=== PATIENT | female | born 1935 | race African-American/Black ===

== ENCOUNTER 2017-05-10 21:49 | Emergency (ER) | payer MEDICARE, OTHER ==
[~2017-05-10] VITALS: Ht 157.5 cm; Wt 59.1 kg
[~2017-05-10 21:49] MED LIST: ALEN1TAB PO; ASPI-825 PO; CARV3 PO; CLOP75 PO; DULO60CA44 PO; EZET1TAB3 PO; FERR1TAB24 PO; FOSI20TA3 PO; FURO20 PO; GABA600T PO; ISOS60TA PO
[2017-05-10 21:57] LABS: GLUCOSE,POINT OF CARE 86 MG/DL (70-110)
[2017-05-10] MEDS ORDERED: HydrALAZINE HCL 20 MG/ML VIAL IVP ONE (22:45)
[2017-05-10] MEDS ORDERED: MORPHINE SULFATE 2 MG/ML SYRINGE IVP ONE (22:45)
[2017-05-10] MEDS ORDERED: ONDANSETRON HCL 4 MG/2 ML VIAL IVP ONE (22:45)
[2017-05-10 22:48] LABS: ANION GAP 8 mmol/L (8-16); CALCIUM, TOTAL 9.6 mg/dL (8.8-10.5); CARBON DIOXIDE 29 mmol/L (22-29); CHLORIDE 109 mmol/L (98-107); CREATININE 1.42 mg/dL (0.60-1.30); GLOMERULAR FILTR. RATE CALC 43 mL/min (>60); GLUCOSE,RANDOM 94 mg/dL (70-110); POTASSIUM 4.7 mmol/L (3.5-5.1); SODIUM SERUM 146 mmol/L (136-145); UREA NITROGEN, BLOOD 33 mg/dL (7-18)
[2017-05-10 22:51] LABS: BASOPHILS % (AUTO) 0.3 % (0.0-2.0); EOSINOPHILS % (AUTO) 3.6 % (1.0-6.0); HEMATOCRIT 32.6 % (36-46); HEMOGLOBIN 10.1 g/dL (12.0-16.0); LYMPHOCYTES # (AUTO) 1.7 K/uL (1.0-4.8); LYMPHOCYTES % (AUTO) 25.4 % (22.0-44.0); MEAN CORPUSCULAR HEMOGLOBIN 25.3 pg (26.0-34.0); MEAN CORPUSCULAR VOLUME 82 fL (80-100); MONOCYTES # (AUTO) 0.4 K/uL (0.1-1.0); MONOCYTES % (AUTO) 6.4 % (2.0-9.0); NEUTROPHILS # (AUTO) 4.3 K/uL (1.8-7.7); NEUTROPHILS % (AUTO) 64.3 % (40.0-70.0); PLATELET COUNT (AUTO) 204 K/uL (150-450); PROTHROMBIN TIME 10.7 SEC (9.4-11.6); RED CELL DISTRIBUTION WIDTH 12.7 % (11.5-14.5)
[2017-05-10 22:54] LABS: ALANINE AMINOTRANSFERASE 16 U/L (12-78); ALBUMIN 3.5 g/dL (3.4-5.0); ALKALINE PHOSPHATASE 43 U/L (46-116); ASPARTATE AMINOTRANSFERASE 11 U/L (15-37); BILIRUBIN,TOTAL 0.6 mg/dL (0.1-1.0); CREATINE KINASE, TOTAL 39 U/L (26-192); TOTAL PROTEIN, SERUM 7.1 g/dL (6.4-8.2)
[2017-05-10] MEDS ORDERED: HYDROmorphone 2 MG/ML SYRINGE IVP ONE (23:00)
[2017-05-10 23:08] LABS: B-TYPE NATRIURETIC PEPTIDE 18 pg/mL (0-100)
[2017-05-11] MEDS ORDERED: SODIUM CHLORIDE 0.9% 500 ML IV ONE (02:00)
[2017-05-11 02:01] LABS: APPEARANCE,URINE CLEAR (CLEAR); BILIRUBIN,URINE NEGATIVE (NEGATIVE); GLUCOSE, URINE (UA) NEGATIVE (NEGATIVE); KETONES,URINE NEGATIVE (NEGATIVE); LEUKOCYTE ESTERASE ,URINE TRACE (NEGATIVE); NITRATE,URINE NEGATIVE (NEGATIVE); OCCULT BLOOD,URINE NEGATIVE (NEGATIVE); PROTEIN,URINE NEGATIVE (NEGATIVE); UROBILINOGEN,URINE 0.2 mg/dL (<=1.0)
[2017-05-11 02:27] LABS: BACTERIA,URINE Rare /HPF (None Seen); RBC,URINE 0-2 /HPF (0-2); SQUAMOUS EPITHELIAL CELL,UR Rare /LPF (None Seen)
[2017-05-11 03:50] VITALS: BP 150/77
== END 2017-05-11 03:57 | disposition home or self-care (01) ==
LOC: EMS 21:49
DX: I10 Essential (primary) hypertension (principal); N39.0 Urinary tract infection, site not specified; D64.9 Anemia, unspecified; M19.90 Unspecified osteoarthritis, unspecified site; E11.9 Type 2 diabetes mellitus without complications; Z88.5 Allergy status to narcotic agent; Z79.82 Long term (current) use of aspirin; Z79.899 Other long term (current) drug therapy; Z98.890 Other specified postprocedural states
CPT/HCPCS: 36415; 70450; 71045; 80053; 81001; 82550; 82962; 83880; 84484; 85025; 85610; 85730; 93005; 96361; 96374; 96375; 99285; J0360; J1170; J2405; J7040; J2270

== ENCOUNTER 2018-04-18 12:39 | Emergency (ER) | payer MEDICARE, OTHER ==
[~2018-04-18] VITALS: Ht 149.9 cm; Wt 56.8 kg
[~2018-04-18 12:39] MED LIST changes: +AMLO5TAB4 PO; -CARV3 PO; +CARV6.2534 PO; +EZET10 PO; -FOSI20TA3 PO; +FOSI20TA97 PO
[2018-04-18 13:03] LABS: GLUCOSE,POINT OF CARE 101 MG/DL (70-110)
[2018-04-18] MEDS ORDERED: KDUR10 PO (13:25)
[2018-04-18] MEDS ORDERED: ALPR0.255 PO (13:25)
[2018-04-18] MEDS ORDERED: HYDR25TA PO (13:25)
[2018-04-18 17:53] VITALS: BP 138/82
== END 2018-04-18 18:37 | disposition home or self-care (01) ==
LOC: EMS 12:40
DX: S83.91XA Sprain of unspecified site of right knee, initial encounter (principal); S40.012A Contusion of left shoulder, initial encounter; S00.93XA Contusion of unspecified part of head, initial encounter; E11.9 Type 2 diabetes mellitus without complications; I10 Essential (primary) hypertension; Z88.5 Allergy status to narcotic agent; Z79.82 Long term (current) use of aspirin; Z79.899 Other long term (current) drug therapy; W19.XXXA Unspecified fall, initial encounter; Y93.89 Activity, other specified; Y92.89 Other specified places as the place of occurrence of the external cause; Y99.8 Other external cause status
CPT/HCPCS: 29505; 70450

== ENCOUNTER → 2018-05-09 | Outpatient (CLI) | payer MEDICARE ==
[~2018-05-09] MED LIST changes: -ALEN1TAB PO; +ALPR0.255 PO; -AMLO5TAB4 PO; -CLOP75 PO; -DULO60CA44 PO; -EZET10 PO; +HYDR25TA PO; -ISOS60TA PO; +KDUR10 PO
== END | disposition home or self-care (01) ==
LOC: CARDPV 12:18
PROVIDERS: ATTEND Specialist
DX: R29.6 Repeated falls (principal)
CPT/HCPCS: 95816

== ENCOUNTER 2018-12-18 20:38 | Emergency (ER) | payer MEDICARE, OTHER ==
[~2018-12-18] VITALS: Ht 157.5 cm; Wt 61.4 kg
[2018-12-18] MEDS ORDERED: AMLO5TAB9 PO (20:58)
[2018-12-18] MEDS ORDERED: TRAM50TA4 PO (20:58)
[2018-12-18] MEDS ORDERED: VALS160T2 PO (20:58)
[2018-12-18] MEDS ORDERED: METF-960 PO (20:58)
[2018-12-18] MEDS ORDERED: DOCU250C77 PO (20:58)
[2018-12-18] MEDS ORDERED: SIMV-261 PO (20:58)
[2018-12-18] MEDS ORDERED: KETOROLAC TROMETHAMINE 30 MG/ML VIAL IVP ONE (21:30)
[2018-12-18] MEDS ORDERED: TraMADol HCL 50 MG TABLET PO ONE (21:30)
[2018-12-18] MEDS ORDERED: MethylPREDNISolone SOD SUCC 125 MG/2 ML VIAL IVP ONE (21:30)
[2018-12-18 21:34] LABS: BASOPHILS % (AUTO) 0.5 % (0.0-2.0); EOSINOPHILS % (AUTO) 2.1 % (1.0-6.0); HEMOGLOBIN 11.1 g/dL (12.0-16.0); LYMPHOCYTES # (AUTO) 1.6 K/uL (1.0-4.8); MEAN CORPUSCULAR HEMOGLOBIN 24.8 pg (26.0-34.0); MEAN CORPUSCULAR HGB CONC 30.8 G/dL (31.0-37.0); MEAN CORPUSCULAR VOLUME 80 fL (80-100); MONOCYTES # (AUTO) 0.5 K/uL (0.1-1.0); MONOCYTES % (AUTO) 8.6 % (2.0-9.0); NEUTROPHILS # (AUTO) 3.7 K/uL (1.8-7.7); NEUTROPHILS % (AUTO) 61.8 % (40.0-70.0); PLATELET COUNT (AUTO) 212 K/uL (150-450); RED BLOOD CELL COUNT(AUTO) 4.47 MIL/uL (4.00-5.20); RED CELL DISTRIBUTION WIDTH 12.4 % (11.5-14.5)
[2018-12-18 21:45] LABS: CALCIUM, TOTAL 9.4 mg/dL (8.8-10.5); CREATININE 1.3 mg/dL (0.60-1.30); POTASSIUM 3.5 mmol/L (3.5-5.1)
[2018-12-18 21:51] LABS: BILIRUBIN,TOTAL 0.8 mg/dL (0.1-1.0); TOTAL PROTEIN, SERUM 7.5 g/dL (6.4-8.2)
[2018-12-19 01:04] VITALS: BP 150/108
[2018-12-19 10:26] LABS: GLUCOSE,POINT OF CARE 95 MG/DL (70-110)
== END 2018-12-19 01:23 | disposition home or self-care (01) ==
LOC: EMS 20:39
DX: J84.10 Pulmonary fibrosis, unspecified (principal); G89.29 Other chronic pain; M54.5 Low back pain; E11.9 Type 2 diabetes mellitus without complications; I10 Essential (primary) hypertension; M19.90 Unspecified osteoarthritis, unspecified site; Z79.899 Other long term (current) drug therapy; Z98.890 Other specified postprocedural states; Z88.5 Allergy status to narcotic agent; Z88.6 Allergy status to analgesic agent; Z95.5 Presence of coronary angioplasty implant and graft
CPT/HCPCS: 36415; 71045; 80053; 82962; 84484; 85025; 93005; 96374; 96375; 99284; J1885; J2930

== ENCOUNTER 2019-05-04 09:18 | Inpatient (IN) | payer MEDICARE, OTHER ==
[~2019-05-04] VITALS: Ht 160 cm; Wt 58.7 kg
[~2019-05-04 09:18] MED LIST changes: +AMLO5TAB9 PO; +DOCU250C77 PO; +HYDR-1475 PO; -HYDR25TA PO; +METF-960 PO; +SIMV-261 PO; +TRAM50TA4 PO; +VALS160T2 PO
[2019-05-04 09:40] LABS: GLUCOSE,POINT OF CARE 106 MG/DL (70-110)
[2019-05-04 10:13] LABS: BASOPHILS % (AUTO) 0.8 % (0.0-2.0); EOSINOPHILS % (AUTO) 1.3 % (1.0-6.0); HEMATOCRIT 34.1 % (36-46); HEMOGLOBIN 10.8 g/dL (12.0-16.0); LYMPHOCYTES # (AUTO) 1.7 K/uL (1.0-4.8); LYMPHOCYTES % (AUTO) 29.8 % (22.0-44.0); MEAN CORPUSCULAR HEMOGLOBIN 25.9 pg (26.0-34.0); MEAN CORPUSCULAR HGB CONC 31.6 G/dL (31.0-37.0); MEAN CORPUSCULAR VOLUME 82 fL (80-100); MONOCYTES # (AUTO) 0.4 K/uL (0.1-1.0); MONOCYTES % (AUTO) 7.5 % (2.0-9.0); NEUTROPHILS # (AUTO) 3.5 K/uL (1.8-7.7); NEUTROPHILS % (AUTO) 60.6 % (40.0-70.0); PLATELET COUNT (AUTO) 252 K/uL (150-450); RED BLOOD CELL COUNT(AUTO) 4.18 MIL/uL (4.00-5.20); RED CELL DISTRIBUTION WIDTH 12.5 % (11.5-14.5)
[2019-05-04 10:23] LABS: CALCIUM, TOTAL 9.2 mg/dL (8.8-10.5); CREATININE 1.89 mg/dL (0.60-1.30); POTASSIUM 3.3 mmol/L (3.5-5.1)
[2019-05-04 10:26] LABS: INR 1.1 (0.9-1.1); PROTHROMBIN TIME 11.5 SEC (9.4-11.6)
[2019-05-04 10:52] LABS: ALBUMIN 3.7 g/dL (3.4-5.0); BILIRUBIN,TOTAL 0.6 mg/dL (0.1-1.0); TOTAL PROTEIN, SERUM 7.5 g/dL (6.4-8.2)
[2019-05-04 12:15] LABS: APPEARANCE,URINE CLEAR (CLEAR); BILIRUBIN,URINE NEGATIVE (NEGATIVE); GLUCOSE, URINE (UA) NEGATIVE (NEGATIVE); KETONES,URINE NEGATIVE (NEGATIVE); LEUKOCYTE ESTERASE ,URINE SMALL (NEGATIVE); NITRATE,URINE NEGATIVE (NEGATIVE); OCCULT BLOOD,URINE NEGATIVE (NEGATIVE); PROTEIN,URINE NEGATIVE (NEGATIVE)
[2019-05-04 12:24] LABS: BACTERIA,URINE None Seen /HPF (None Seen); SQUAMOUS EPITHELIAL CELL,UR Rare /LPF (None Seen); WBC,URINE None Seen /HPF (0-5)
[2019-05-04] MEDS ORDERED: ASPIRIN 325 MG TABLET PO ONE (12:30)
[2019-05-04] MEDS ORDERED: ACETAMINOPHEN 325 MG TABLET PO PRN ×2 (12:45→15:15)
[2019-05-04] MEDS ORDERED: 0.9% SODIUM CHLORIDE 10 ML SYRINGE IVP PRN (12:45)
[2019-05-04] MEDS ORDERED: ONDANSETRON HCL 4 MG/2 ML VIAL IVP PRN ×2 (12:45→15:15)
[2019-05-04] MEDS ORDERED: BISACODYL 10 MG RECTAL RECTAL SUPPOSITORY PR PRN (15:15)
[2019-05-04] MEDS ORDERED: HydrALAZINE HCL 20 MG/ML VIAL IVP PRN (15:15)
[2019-05-04] MEDS ORDERED: DEXTROSE 50%-WATER 25 GM/50 ML SYRINGE IVP PRN (15:15)
[2019-05-04] MEDS ORDERED: IPRATROPIUM BROMIDE 0.5 MG/2.5 ML NEB SOLUTION NEB PRN (15:15)
[2019-05-04] MEDS ORDERED: ISOSORBIDE MONONITRATE 60 MG ER TABLET PO ONE (15:15)
[2019-05-04] MEDS ORDERED: TraMADol HCL 50 MG TABLET PO PRN (15:15)
[2019-05-04] MEDS ORDERED: MAGNESIUM HYDROXIDE SUSPENSION 30 ML UDCUP PO PRN (15:15)
[2019-05-04] MEDS ORDERED: ALBUTEROL SULFATE 2.5 MG/0.5 ML NEB SOLUTION NEB PRN (15:15)
[2019-05-04] MEDS ORDERED: CARV25 PO (15:19)
[2019-05-04] MEDS ORDERED: FERR-89 PO (15:19)
[2019-05-04] MEDS ORDERED: ASPI-728 PO (15:19)
[2019-05-04] MEDS ORDERED: LISI-618 PO (15:19)
[2019-05-04 16:13] VITALS: BP 146/74
[2019-05-04] MEDS: GABAPENTIN 300 MG CAPSULE PO SCH ×2 (16:44→20:49)
[2019-05-04] MEDS: FERROUS SULFATE 325 MG EC TABLET PO SCH (16:57)
[2019-05-04] MEDS ORDERED: HEPARIN SODIUM 25000 UNITS/D5W 250 ML IV PRN (17:59)
[2019-05-04] MEDS ORDERED: HEPARIN SODIUM,PORCINE 5,000 UNITS/ML VIAL IVP ONE (18:00)
[2019-05-04] MEDS ORDERED: HEPARIN SODIUM,PORCINE 5,000 UNITS/ML VIAL IVP PRN ×2 (18:00)
[2019-05-04] MEDS: INSULIN LISPRO 100 UNITS/ML SQ PRN (18:21)
[2019-05-04 20:05] VITALS: BP 108/62
[2019-05-04] MEDS: CARVEDILOL 6.25 MG TABLET PO SCH (20:49)
[2019-05-04] MEDS: FUROSEMIDE 20 MG TABLET PO SCH (20:57)
[2019-05-04] MEDS ORDERED: HEPARIN SODIUM,PORCINE 5,000 UNITS/ML VIAL SQ SCH (21:00)
[2019-05-04] MEDS: ALPRAZolam 0.25 MG TABLET PO PRN (21:03)
[2019-05-05] VITALS (8 sets, daily range): BP systolic 74–177; BP diastolic 51–82
[2019-05-05 03:00] LABS: BASOPHILS % (AUTO) 1.1 % (0.0-2.0); EOSINOPHILS % (AUTO) 2.7 % (1.0-6.0); HEMATOCRIT 31.2 % (36-46); HEMOGLOBIN 9.8 g/dL (12.0-16.0); LYMPHOCYTES # (AUTO) 1.8 K/uL (1.0-4.8); LYMPHOCYTES % (AUTO) 32.7 % (22.0-44.0); MEAN CORPUSCULAR HEMOGLOBIN 25.5 pg (26.0-34.0); MEAN CORPUSCULAR HGB CONC 31.3 G/dL (31.0-37.0); MEAN CORPUSCULAR VOLUME 82 fL (80-100); MONOCYTES # (AUTO) 0.5 K/uL (0.1-1.0); MONOCYTES % (AUTO) 9.7 % (2.0-9.0); NEUTROPHILS % (AUTO) 53.8 % (40.0-70.0); PLATELET COUNT (AUTO) 218 K/uL (150-450); RED BLOOD CELL COUNT(AUTO) 3.82 MIL/uL (4.00-5.20); RED CELL DISTRIBUTION WIDTH 12.1 % (11.5-14.5)
[2019-05-05 03:07] LABS: INR 1.2 (0.9-1.1); PROTHROMBIN TIME 12.1 SEC (9.4-11.6)
[2019-05-05] MEDS: INSULIN LISPRO 100 UNITS/ML SQ PRN (06:12)
[2019-05-05] MEDS: POTASSIUM CHLORIDE 10 MEQ ER TABLET PO SCH (08:59)
[2019-05-05] MEDS: FERROUS SULFATE 325 MG EC TABLET PO SCH ×2 (08:59→16:59)
[2019-05-05] MEDS: PANTOPRAZOLE SODIUM 40 MG DR TABLET PO SCH (08:59)
[2019-05-05] MEDS: GABAPENTIN 300 MG CAPSULE PO SCH ×4 (08:59→20:39)
[2019-05-05] MEDS: ASPIRIN 81 MG CHEWABLE TABLET PO SCH (08:59)
[2019-05-05] MEDS: ISOSORBIDE MONONITRATE 30 MG ER TABLET PO SCH (09:00)
[2019-05-05] MEDS: CARVEDILOL 6.25 MG TABLET PO SCH ×2 (09:00→21:00)
[2019-05-05] MEDS: AmLODIPine BESYLATE 5 MG TABLET PO SCH ×2 (09:00→11:24)
[2019-05-05] MEDS: FUROSEMIDE 20 MG TABLET PO SCH ×2 (09:00→11:24)
[2019-05-05] MEDS: DOCUSATE SODIUM 250 MG CAPSULE PO SCH (09:03)
[2019-05-05] MEDS: SIMVASTATIN 40 MG TABLET PO SCH (09:06)
[2019-05-05 09:36] LABS: BASOPHILS % (AUTO) 0.3 % (0.0-2.0); EOSINOPHILS % (AUTO) 4.4 % (1.0-6.0); HEMATOCRIT 33.5 % (36-46); HEMOGLOBIN 10.5 g/dL (12.0-16.0); LYMPHOCYTES # (AUTO) 1.8 K/uL (1.0-4.8); LYMPHOCYTES % (AUTO) 35.2 % (22.0-44.0); MEAN CORPUSCULAR HEMOGLOBIN 25.5 pg (26.0-34.0); MEAN CORPUSCULAR HGB CONC 31.3 G/dL (31.0-37.0); MEAN CORPUSCULAR VOLUME 82 fL (80-100); MONOCYTES # (AUTO) 0.4 K/uL (0.1-1.0); MONOCYTES % (AUTO) 7.2 % (2.0-9.0); NEUTROPHILS # (AUTO) 2.8 K/uL (1.8-7.7); NEUTROPHILS % (AUTO) 52.9 % (40.0-70.0); PLATELET COUNT (AUTO) 248 K/uL (150-450); RED BLOOD CELL COUNT(AUTO) 4.11 MIL/uL (4.00-5.20)
[2019-05-05 10:07] LABS: ALBUMIN 3.2 g/dL (3.4-5.0); BILIRUBIN,TOTAL 0.5 mg/dL (0.1-1.0); CALCIUM, TOTAL 8.9 mg/dL (8.8-10.5); CHOL/HDL RATIO 2.5 (3.9-5.7); CREATININE 1.48 mg/dL (0.60-1.30); POTASSIUM 3.1 mmol/L (3.5-5.1); TOTAL PROTEIN, SERUM 6.7 g/dL (6.4-8.2)
[2019-05-05] MEDS: ALPRAZolam 0.25 MG TABLET PO PRN (17:00)
[2019-05-05 19:58] LABS: GLUCOMETER DEV NAME(LOC) 5N.2; GLUCOSE,POINT OF CARE 134 MG/DL (70-110)
[2019-05-05 19:58] LABS: GLUCOMETER DEV NAME(LOC) 5N.1; GLUCOSE,POINT OF CARE 67 MG/DL (70-110)
[2019-05-05 19:58] LABS: GLUCOMETER DEV NAME(LOC) 5N.1; GLUCOSE,POINT OF CARE 158 MG/DL (70-110)
[2019-05-05 19:59] LABS: GLUCOMETER DEV NAME(LOC) 5N.2; GLUCOSE,POINT OF CARE 86 MG/DL (70-110)
[2019-05-05 19:59] LABS: GLUCOMETER DEV NAME(LOC) 5N.2; GLUCOSE,POINT OF CARE 111 MG/DL (70-110)
[2019-05-05 19:59] LABS: GLUCOMETER DEV NAME(LOC) 5N.1; GLUCOSE,POINT OF CARE 220 MG/DL (70-110)
[2019-05-05 21:24] LABS: GLUCOMETER DEV NAME(LOC) 5N.2; GLUCOSE,POINT OF CARE 115 MG/DL (70-110)
[2019-05-06] MEDS: ALPRAZolam 0.25 MG TABLET PO PRN (02:37)
[2019-05-06 05:16] VITALS: BP 125/76
[2019-05-06 06:18] LABS: GLUCOMETER DEV NAME(LOC) 5N.2; GLUCOSE,POINT OF CARE 97 MG/DL (70-110)
[2019-05-06 06:47] LABS: BASOPHILS % (AUTO) 0.4 % (0.0-2.0); EOSINOPHILS % (AUTO) 5.1 % (1.0-6.0); HEMATOCRIT 33.6 % (36-46); HEMOGLOBIN 10.5 g/dL (12.0-16.0); LYMPHOCYTES # (AUTO) 1.4 K/uL (1.0-4.8); LYMPHOCYTES % (AUTO) 28.9 % (22.0-44.0); MEAN CORPUSCULAR HEMOGLOBIN 25.3 pg (26.0-34.0); MEAN CORPUSCULAR HGB CONC 31.4 G/dL (31.0-37.0); MEAN CORPUSCULAR VOLUME 81 fL (80-100); MONOCYTES # (AUTO) 0.4 K/uL (0.1-1.0); MONOCYTES % (AUTO) 7.6 % (2.0-9.0); NEUTROPHILS # (AUTO) 2.8 K/uL (1.8-7.7); PLATELET COUNT (AUTO) 239 K/uL (150-450); RED BLOOD CELL COUNT(AUTO) 4.17 MIL/uL (4.00-5.20)
[2019-05-06 07:10] VITALS: BP 129/74
[2019-05-06 07:15] LABS: CALCIUM, TOTAL 9.2 mg/dL (8.8-10.5); CREATININE 1.18 mg/dL (0.60-1.30); POTASSIUM 3.3 mmol/L (3.5-5.1)
[2019-05-06 08:22] LABS: GLUCOMETER DEV NAME(LOC) 5N.1; GLUCOSE,POINT OF CARE 97 MG/DL (70-110)
[2019-05-06] MEDS: ISOSORBIDE MONONITRATE 30 MG ER TABLET PO SCH (08:35)
[2019-05-06] MEDS: PANTOPRAZOLE SODIUM 40 MG DR TABLET PO SCH (08:35)
[2019-05-06] MEDS: FUROSEMIDE 20 MG TABLET PO SCH (08:35)
[2019-05-06] MEDS: SIMVASTATIN 40 MG TABLET PO SCH (08:35)
[2019-05-06] MEDS: CARVEDILOL 6.25 MG TABLET PO SCH (08:35)
[2019-05-06] MEDS: DOCUSATE SODIUM 250 MG CAPSULE PO SCH (08:35)
[2019-05-06] MEDS: FERROUS SULFATE 325 MG EC TABLET PO SCH (08:35)
[2019-05-06] MEDS: ASPIRIN 81 MG CHEWABLE TABLET PO SCH (08:36)
[2019-05-06] MEDS: GABAPENTIN 300 MG CAPSULE PO SCH ×2 (08:36→13:04)
[2019-05-06] MEDS: AmLODIPine BESYLATE 5 MG TABLET PO SCH (08:36)
[2019-05-06] MEDS: POTASSIUM CHLORIDE 10 MEQ ER TABLET PO SCH (08:42)
[2019-05-06 11:34] VITALS: BP 124/72
[2019-05-06] MEDS ORDERED: CARV3.1262 PO (11:49)
[2019-05-06] MEDS ORDERED: ISOS30TA6 PO (11:50)
[2019-05-06 12:31] LABS: GLUCOMETER DEV NAME(LOC) 5N.1; GLUCOSE,POINT OF CARE 88 MG/DL (70-110)
== END 2019-05-06 13:40 | disposition home or self-care (01) | DRG 281 ==
LOC: EMS 09:19 → 5N 14:24
PROVIDERS: ADMIT Internal Medicine; ATTEND Internal Medicine
DX: I21.4 Non-ST elevation (NSTEMI) myocardial infarction (principal); I13.0 Hypertensive heart and chronic kidney disease with heart failure and stage 1 through stage 4 chronic kidney disease, or unspecified chronic kidney disease; I25.110 Atherosclerotic heart disease of native coronary artery with unstable angina pectoris; D50.9 Iron deficiency anemia, unspecified; E11.22 Type 2 diabetes mellitus with diabetic chronic kidney disease; N18.3 Chronic kidney disease, stage 3 (moderate); I50.9 Heart failure, unspecified; M19.90 Unspecified osteoarthritis, unspecified site; E78.5 Hyperlipidemia, unspecified; Z88.6 Allergy status to analgesic agent; Z95.5 Presence of coronary angioplasty implant and graft
CPT/HCPCS: 93005; 93306; J1644

== ENCOUNTER 2021-04-09 18:58 | Inpatient (IN) | payer MEDICARE, OTHER ==
[~2021-04-09] VITALS: Ht 160 cm; Wt 57.0 kg
[~2021-04-09 18:58] MED LIST changes: +AMLO-257 PO; -AMLO5TAB9 PO; +ASPI-1450 PO; -ASPI-825 PO; +CARV3.1262 PO; -CARV6.2534 PO; -EZET1TAB3 PO; +FERR-89 PO; -FERR1TAB24 PO; -FOSI20TA97 PO; -FURO20 PO; -HYDR-1475 PO; +ISOS30TA92 PO; -KDUR10 PO; +METF-1211 PO; -METF-960 PO; +POTA-92 PO; -VALS160T2 PO
[2021-04-09 19:36] LABS: BASOPHILS % (AUTO) 0.4 % (0.0-2.0); EOSINOPHILS % (AUTO) 0.6 % (1.0-6.0); HEMATOCRIT 38.2 % (36-46); HEMOGLOBIN 12.1 g/dL (12.0-16.0); LYMPHOCYTES # (AUTO) 1.5 K/uL (1.0-4.8); LYMPHOCYTES % (AUTO) 14.6 % (22.0-44.0); MEAN CORPUSCULAR HEMOGLOBIN 25.1 pg (26.0-34.0); MEAN CORPUSCULAR HGB CONC 31.7 G/dL (31.0-37.0); MEAN CORPUSCULAR VOLUME 79 fL (80-100); MONOCYTES # (AUTO) 0.7 K/uL (0.1-1.0); MONOCYTES % (AUTO) 6.7 % (2.0-9.0); NEUTROPHILS % (AUTO) 77.7 % (40.0-70.0); PLATELET COUNT (AUTO) 268 K/uL (150-450); RED BLOOD CELL COUNT(AUTO) 4.83 MIL/uL (4.00-5.20)
[2021-04-09 20:09] LABS: ANION GAP 12 mmol/L (8-16); CARBON DIOXIDE 27 mmol/L (22-29); CHLORIDE 108 mmol/L (98-107); CREATININE 1.42 mg/dL (0.60-1.30); GLOMERULAR FILTR. RATE CALC 43 mL/min (>60); GLUCOSE,RANDOM 105 mg/dL (70-110); POTASSIUM 3.8 mmol/L (3.5-5.1); SODIUM SERUM 147 mmol/L (136-145); UREA NITROGEN, BLOOD 24 mg/dL (7-18)
[2021-04-09 20:15] LABS: ALANINE AMINOTRANSFERASE 18 U/L (12-78); ALBUMIN 4.2 g/dL (3.4-5.0); ALKALINE PHOSPHATASE 61 U/L (46-116); ASPARTATE AMINOTRANSFERASE 26 U/L (15-37); BILIRUBIN,TOTAL 1.2 mg/dL (0.1-1.0)
[2021-04-09 20:16] LABS: TROPONIN I 0.06 ng/mL (0.00-0.05)
[2021-04-09 21:21] LABS: TOTAL PROTEIN, SERUM 8.5 g/dL (6.4-8.2)
[2021-04-09] MEDS ORDERED: SODIUM CHLORIDE 0.9% 1,000 ML IV ONE (22:00)
[2021-04-09] MEDS ORDERED: 0.9% SODIUM CHLORIDE 10 ML SYRINGE IVP PRN (22:00)
[2021-04-09] MEDS ORDERED: ZOLPIDEM TARTRATE 5 MG TABLET PO PRN (22:00)
[2021-04-09] MEDS ORDERED: MAGNESIUM HYDROXIDE SUSPENSION 30 ML UDCUP PO PRN (22:00)
[2021-04-09] MEDS ORDERED: BISACODYL 10 MG RECTAL RECTAL SUPPOSITORY PR PRN (22:00)
[2021-04-09] MEDS ORDERED: LABETALOL HCL 5 MG/ML 20 ML VIAL IVP ONE (22:00)
[2021-04-09] MEDS ORDERED: ONDANSETRON HCL 4 MG/2 ML VIAL IVP PRN (22:00)
[2021-04-09 22:02] LABS: COVID AG,FIA SOURCE NASOPHARYNGEAL
[2021-04-09 22:21] LABS: APPEARANCE,URINE CLEAR (CLEAR); GLUCOSE, URINE (UA) NEGATIVE (NEGATIVE); KETONES,URINE TRACE mg/dL (NEGATIVE); LEUKOCYTE ESTERASE ,URINE NEGATIVE (NEGATIVE); NITRATE,URINE NEGATIVE (NEGATIVE); OCCULT BLOOD,URINE MODERATE (NEGATIVE); PROTEIN,URINE SEE CONFIRM (NEGATIVE)
[2021-04-09 22:22] LABS: BILIRUBIN,URINE PRELIM. POSITIVE (NEGATIVE)
[2021-04-09 22:35] LABS: AMPHET/METH SCREEN,URINE NEGATIVE (NEGATIVE); BARBITURATE SCREEN, URINE NEGATIVE (NEGATIVE); BENZODIAZEPINES SCREEN,URINE NEGATIVE (NEGATIVE); CANNABINOID SCREEN,URINE NEGATIVE (NEGATIVE); COCAINE SCREEN,URINE NEGATIVE (NEGATIVE); METHADONE SCREEN, URINE NEGATIVE (NEGATIVE); OPIATE SCREEN,URINE NEGATIVE (NEGATIVE); PHENCYCLIDINE SCREEN,URINE NEGATIVE (NEGATIVE)
[2021-04-09] MEDS ORDERED: NITROGLYCERIN 2% (1 GM=INCH) PACKET TP ONE (23:00)
[2021-04-09] MEDS ORDERED: HydrALAZINE HCL 20 MG/ML VIAL IVP ONE (23:00)
[2021-04-09 23:18] LABS: SULFOSALICYLIC ACID,URINE 4+ (Negative)
[2021-04-09 23:20] LABS: BACTERIA,URINE None Seen /HPF (None Seen); RBC,URINE None Seen /HPF (0-2); WBC,URINE 0-2 /HPF (0-5)
[2021-04-10 04:35] LABS: BASOPHILS % (AUTO) 0.4 % (0.0-2.0); EOSINOPHILS % (AUTO) 0.7 % (1.0-6.0); HEMATOCRIT 38.3 % (36-46); LYMPHOCYTES # (AUTO) 1.2 K/uL (1.0-4.8); LYMPHOCYTES % (AUTO) 11.6 % (22.0-44.0); MEAN CORPUSCULAR HEMOGLOBIN 24.7 pg (26.0-34.0); MEAN CORPUSCULAR HGB CONC 31.2 G/dL (31.0-37.0); MEAN CORPUSCULAR VOLUME 79 fL (80-100); MONOCYTES # (AUTO) 0.4 K/uL (0.1-1.0); MONOCYTES % (AUTO) 4.2 % (2.0-9.0); NEUTROPHILS # (AUTO) 8.8 K/uL (1.8-7.7); NEUTROPHILS % (AUTO) 83.1 % (40.0-70.0); PLATELET COUNT (AUTO) 252 K/uL (150-450); RED BLOOD CELL COUNT(AUTO) 4.84 MIL/uL (4.00-5.20); RED CELL DISTRIBUTION WIDTH 13.2 % (11.5-14.5)
[2021-04-10 04:44] LABS: CALCIUM, TOTAL 8.9 mg/dL (8.8-10.5); CREATININE 1.39 mg/dL (0.60-1.30); POTASSIUM 3.5 mmol/L (3.5-5.1)
[2021-04-10] MEDS: ACETAMINOPHEN 325 MG TABLET PO PRN ×4 (05:35→23:49)
[2021-04-10] MEDS ORDERED: LABETALOL HCL 5 MG/ML 20 ML VIAL IVP ONE (05:45)
[2021-04-10] MEDS ORDERED: NITROGLYCERIN 50 MG/D5% WATER 250 ML IV PRN (06:45)
[2021-04-10] MEDS: PANTOPRAZOLE SODIUM 40 MG DR TABLET PO SCH (07:21)
[2021-04-10] MEDS: CARVEDILOL 3.125 MG TABLET PO SCH ×2 (07:22→20:33)
[2021-04-10] MEDS: AmLODIPine BESYLATE 5 MG TABLET PO SCH (07:22)
[2021-04-10] MEDS: DOCUSATE SODIUM 100 MG CAPSULE PO SCH ×2 (07:22→20:33)
[2021-04-10] MEDS: HEPARIN SODIUM,PORCINE 5,000 UNITS/ML VIAL SQ SCH ×4 (07:22→23:40)
[2021-04-10] MEDS: ASPIRIN 81 MG CHEWABLE TABLET PO SCH (07:22)
[2021-04-10] MEDS: FERROUS SULFATE 325 MG EC TABLET PO SCH ×2 (07:23→17:16)
[2021-04-10] MEDS: SIMVASTATIN 40 MG TABLET PO SCH (10:28)
[2021-04-10] MEDS: ISOSORBIDE MONONITRATE 30 MG ER TABLET PO SCH (10:28)
[2021-04-10] MEDS: HydrALAZINE HCL 20 MG/ML VIAL IVP PRN (10:41)
[2021-04-11] MEDS: HydrALAZINE HCL 20 MG/ML VIAL IVP PRN (04:34)
[2021-04-11 04:57] LABS: BASOPHILS % (AUTO) 0.3 % (0.0-2.0); EOSINOPHILS % (AUTO) 0.9 % (1.0-6.0); HEMATOCRIT 34.6 % (36-46); LYMPHOCYTES # (AUTO) 1.5 K/uL (1.0-4.8); LYMPHOCYTES % (AUTO) 15.4 % (22.0-44.0); MEAN CORPUSCULAR HGB CONC 31.7 G/dL (31.0-37.0); MEAN CORPUSCULAR VOLUME 79 fL (80-100); MONOCYTES # (AUTO) 0.6 K/uL (0.1-1.0); MONOCYTES % (AUTO) 5.9 % (2.0-9.0); NEUTROPHILS # (AUTO) 7.4 K/uL (1.8-7.7); NEUTROPHILS % (AUTO) 77.5 % (40.0-70.0); PLATELET COUNT (AUTO) 226 K/uL (150-450); RED BLOOD CELL COUNT(AUTO) 4.38 MIL/uL (4.00-5.20); RED CELL DISTRIBUTION WIDTH 12.9 % (11.5-14.5)
[2021-04-11 05:10] LABS: CALCIUM, TOTAL 8.1 mg/dL (8.8-10.5); CREATININE 1.2 mg/dL (0.60-1.30); POTASSIUM 3.2 mmol/L (3.5-5.1)
[2021-04-11] MEDS ORDERED: POTASSIUM CHLORIDE 10% 40 MEQ/30 ML LIQUID UDCUP PO ONE (05:45)
[2021-04-11] MEDS ORDERED: NITROGLYCERIN 50 MG/D5% WATER 250 ML IV PRN (08:00)
[2021-04-11] MEDS: HEPARIN SODIUM,PORCINE 5,000 UNITS/ML VIAL SQ SCH ×2 (08:09→16:09)
[2021-04-11] MEDS: DOCUSATE SODIUM 100 MG CAPSULE PO SCH ×2 (08:10→21:12)
[2021-04-11] MEDS: PANTOPRAZOLE SODIUM 40 MG DR TABLET PO SCH (08:10)
[2021-04-11] MEDS: AmLODIPine BESYLATE 5 MG TABLET PO SCH (08:11)
[2021-04-11] MEDS: CARVEDILOL 3.125 MG TABLET PO SCH ×2 (08:12→21:12)
[2021-04-11] MEDS: ASPIRIN 81 MG CHEWABLE TABLET PO SCH (08:12)
[2021-04-11] MEDS: SIMVASTATIN 40 MG TABLET PO SCH (08:37)
[2021-04-11] MEDS: FERROUS SULFATE 325 MG EC TABLET PO SCH ×2 (08:37→18:07)
[2021-04-11] MEDS: ISOSORBIDE MONONITRATE 30 MG ER TABLET PO SCH (08:37)
[2021-04-11] MEDS: ONDANSETRON HCL 4 MG/2 ML VIAL IVP PRN ×2 (10:19→16:11)
[2021-04-11 14:31] LABS: GLUCOMETER DEV NAME(LOC) ERT.5; GLUCOSE,POINT OF CARE 113 MG/DL (70-110)
[2021-04-11] MEDS ORDERED: POTASSIUM CHLORIDE 20 MEQ ER TABLET PO PRN (15:30)
[2021-04-11] MEDS ORDERED: POTASSIUM CHL 10 MEQ/WATER 50 ML IV PRN (15:30)
[2021-04-11 16:23] LABS: CHOL/HDL RATIO 2.6 (3.9-5.7); MAGNESIUM 2.1 mg/dL (1.80-2.40); PHOSPHORUS 3.9 mg/dL (2.5-4.9)
[2021-04-11 20:39] VITALS: BP 155/85
[2021-04-11 23:35] VITALS: BP 125/81
[2021-04-12] MEDS: HEPARIN SODIUM,PORCINE 5,000 UNITS/ML VIAL SQ SCH ×3 (00:11→17:31)
[2021-04-12] MEDS: ACETAMINOPHEN 325 MG TABLET PO PRN ×3 (00:16→21:29)
[2021-04-12 03:45] VITALS: BP 155/65
[2021-04-12 07:30] VITALS: BP 162/77
[2021-04-12 08:08] LABS: EOSINOPHILS % (AUTO) 0.7 % (1.0-6.0); HEMATOCRIT 34.7 % (36-46); HEMOGLOBIN 10.7 g/dL (12.0-16.0); LYMPHOCYTES # (AUTO) 1.1 K/uL (1.0-4.8); MEAN CORPUSCULAR HEMOGLOBIN 24.9 pg (26.0-34.0); MEAN CORPUSCULAR VOLUME 80 fL (80-100); MONOCYTES # (AUTO) 0.5 K/uL (0.1-1.0); NEUTROPHILS # (AUTO) 6.5 K/uL (1.8-7.7); NEUTROPHILS % (AUTO) 80.3 % (40.0-70.0); PLATELET COUNT (AUTO) 216 K/uL (150-450); RED BLOOD CELL COUNT(AUTO) 4.32 MIL/uL (4.00-5.20); RED CELL DISTRIBUTION WIDTH 12.9 % (11.5-14.5)
[2021-04-12 08:19] LABS: CALCIUM, TOTAL 8.3 mg/dL (8.8-10.5); CREATININE 1.59 mg/dL (0.60-1.30); POTASSIUM 3.7 mmol/L (3.5-5.1)
[2021-04-12] MEDS: AmLODIPine BESYLATE 10 MG TABLET PO SCH (09:03)
[2021-04-12] MEDS: PANTOPRAZOLE SODIUM 40 MG DR TABLET PO SCH (09:03)
[2021-04-12] MEDS: FERROUS SULFATE 325 MG EC TABLET PO SCH (09:04)
[2021-04-12] MEDS: DOCUSATE SODIUM 100 MG CAPSULE PO SCH ×2 (09:04→21:00)
[2021-04-12] MEDS: SIMVASTATIN 40 MG TABLET PO SCH (09:05)
[2021-04-12] MEDS: ASPIRIN 81 MG CHEWABLE TABLET PO SCH (09:05)
[2021-04-12] MEDS: ISOSORBIDE MONONITRATE 30 MG ER TABLET PO SCH (09:05)
[2021-04-12] MEDS: CARVEDILOL 3.125 MG TABLET PO SCH ×2 (09:05→21:24)
[2021-04-12] MEDS ORDERED: DEXTROSE 5%-WATER 1,000 ML IV ONE (11:00)
[2021-04-12] MEDS: LOSARTAN POTASSIUM 25 MG TABLET PO SCH ×2 (12:03→21:23)
[2021-04-12 13:13] VITALS: BP 148/80
[2021-04-12 14:17] LABS: GLUCOMETER DEV NAME(LOC) 5S.2B; GLUCOSE,POINT OF CARE 114 MG/DL (70-110)
[2021-04-12 16:09] VITALS: BP 149/71
[2021-04-12 19:57] VITALS: BP 131/66
[2021-04-12 23:48] VITALS: BP 158/74
[2021-04-13] MEDS: HEPARIN SODIUM,PORCINE 5,000 UNITS/ML VIAL SQ SCH ×4 (00:09→16:14)
[2021-04-13] MEDS: HydrALAZINE HCL 20 MG/ML VIAL IVP PRN (03:23)
[2021-04-13 04:22] VITALS: BP 191/89
[2021-04-13] MEDS: ACETAMINOPHEN 325 MG TABLET PO PRN ×2 (05:05→20:23)
[2021-04-13 06:22] VITALS: BP 145/77
[2021-04-13 07:41] VITALS: BP 153/72
[2021-04-13 08:04] LABS: CALCIUM, TOTAL 8.5 mg/dL (8.8-10.5); CREATININE 1.43 mg/dL (0.60-1.30); POTASSIUM 3.7 mmol/L (3.5-5.1)
[2021-04-13] MEDS: DOCUSATE SODIUM 100 MG CAPSULE PO SCH ×2 (08:17→21:04)
[2021-04-13] MEDS: SIMVASTATIN 40 MG TABLET PO SCH (08:18)
[2021-04-13] MEDS: ISOSORBIDE MONONITRATE 30 MG ER TABLET PO SCH (08:18)
[2021-04-13] MEDS: AmLODIPine BESYLATE 10 MG TABLET PO SCH (08:18)
[2021-04-13] MEDS: LOSARTAN POTASSIUM 25 MG TABLET PO SCH (08:18)
[2021-04-13] MEDS: CARVEDILOL 3.125 MG TABLET PO SCH ×2 (08:18→21:03)
[2021-04-13] MEDS: ASPIRIN 81 MG CHEWABLE TABLET PO SCH (08:18)
[2021-04-13] MEDS: PANTOPRAZOLE SODIUM 40 MG DR TABLET PO SCH (08:18)
[2021-04-13 11:16] VITALS: BP 101/54
[2021-04-13 15:11] VITALS: BP 118/63
[2021-04-13 20:30] VITALS: BP 132/71
[2021-04-14] MEDS: HEPARIN SODIUM,PORCINE 5,000 UNITS/ML VIAL SQ SCH ×4 (00:37→16:00)
[2021-04-14 00:44] VITALS: BP 159/81
[2021-04-14 04:59] VITALS: BP 158/82
[2021-04-14] MEDS: ASPIRIN 81 MG CHEWABLE TABLET PO SCH (08:12)
[2021-04-14] MEDS: ISOSORBIDE MONONITRATE 30 MG ER TABLET PO SCH (08:14)
[2021-04-14] MEDS: DOCUSATE SODIUM 100 MG CAPSULE PO SCH ×2 (08:14→19:52)
[2021-04-14] MEDS: SIMVASTATIN 40 MG TABLET PO SCH (08:15)
[2021-04-14] MEDS: AmLODIPine BESYLATE 10 MG TABLET PO SCH (08:15)
[2021-04-14] MEDS: LOSARTAN POTASSIUM 25 MG TABLET PO SCH (08:15)
[2021-04-14] MEDS: CARVEDILOL 3.125 MG TABLET PO SCH (08:16)
[2021-04-14] MEDS: PANTOPRAZOLE SODIUM 40 MG DR TABLET PO SCH (08:16)
[2021-04-14] MEDS ORDERED: CARV6 PO (10:18)
[2021-04-14] MEDS ORDERED: GABA-1181 PO (10:18)
[2021-04-14] MEDS ORDERED: DOCU-350 PO (10:18)
[2021-04-14 10:39] VITALS: BP 132/75
[2021-04-14 14:27] VITALS: BP 153/78
[2021-04-14 19:20] VITALS: BP 157/89
[2021-04-14] MEDS: CARVEDILOL 6.25 MG TABLET PO SCH (19:52)
[2021-04-14 23:50] VITALS: BP 155/75
[2021-04-15] MEDS: HEPARIN SODIUM,PORCINE 5,000 UNITS/ML VIAL SQ SCH ×4 (00:17→23:32)
[2021-04-15 04:10] VITALS: BP 148/94
[2021-04-15 07:00] VITALS: BP 137/90
[2021-04-15] MEDS: ASPIRIN 81 MG CHEWABLE TABLET PO SCH (08:02)
[2021-04-15] MEDS: CARVEDILOL 6.25 MG TABLET PO SCH ×2 (09:09→19:52)
[2021-04-15] MEDS: DOCUSATE SODIUM 100 MG CAPSULE PO SCH ×2 (09:09→19:52)
[2021-04-15] MEDS: PANTOPRAZOLE SODIUM 40 MG DR TABLET PO SCH (09:09)
[2021-04-15] MEDS: ISOSORBIDE MONONITRATE 30 MG ER TABLET PO SCH (09:09)
[2021-04-15] MEDS: LOSARTAN POTASSIUM 25 MG TABLET PO SCH (09:09)
[2021-04-15] MEDS: AmLODIPine BESYLATE 10 MG TABLET PO SCH (09:09)
[2021-04-15] MEDS: SIMVASTATIN 40 MG TABLET PO SCH (09:09)
[2021-04-15 11:11] VITALS: BP 121/69
[2021-04-15 15:14] VITALS: BP 138/76
[2021-04-15 19:42] VITALS: BP 143/75
[2021-04-15] MEDS: ACETAMINOPHEN 325 MG TABLET PO PRN (19:52)
[2021-04-16 05:03] VITALS: BP 144/95
[2021-04-16 07:45] VITALS: BP 156/85
[2021-04-16] MEDS: AmLODIPine BESYLATE 10 MG TABLET PO SCH (08:36)
[2021-04-16] MEDS: LOSARTAN POTASSIUM 25 MG TABLET PO SCH (08:36)
[2021-04-16] MEDS: ASPIRIN 81 MG CHEWABLE TABLET PO SCH (08:36)
[2021-04-16] MEDS: DOCUSATE SODIUM 100 MG CAPSULE PO SCH (08:36)
[2021-04-16] MEDS: CARVEDILOL 6.25 MG TABLET PO SCH (08:36)
[2021-04-16] MEDS: ISOSORBIDE MONONITRATE 30 MG ER TABLET PO SCH (08:37)
[2021-04-16] MEDS: PANTOPRAZOLE SODIUM 40 MG DR TABLET PO SCH (08:37)
[2021-04-16] MEDS: SIMVASTATIN 40 MG TABLET PO SCH (08:37)
[2021-04-16] MEDS: ACETAMINOPHEN 325 MG TABLET PO PRN (08:38)
[2021-04-16] MEDS: HEPARIN SODIUM,PORCINE 5,000 UNITS/ML VIAL SQ SCH ×2 (08:43→16:22)
[2021-04-16 12:35] VITALS: BP 98/58
[2021-04-16] MEDS ORDERED: AMLO-258 PO (12:49)
[2021-04-16] MEDS ORDERED: LOSA-382 PO (12:50)
[2021-04-16 16:15] VITALS: BP 122/82
== END 2021-04-16 18:00 | disposition home health service (06) | DRG 304 ==
LOC: EMS 19:04 → 5S 04-10 06:05 → ICUN 04-10 15:56 → 5S 04-11 20:25
PROVIDERS: ADMIT Internal Medicine; ATTEND Internal Medicine
DX: I16.1 Hypertensive emergency (principal); I63.9 Cerebral infarction, unspecified; I67.4 Hypertensive encephalopathy; E87.0 Hyperosmolality and hypernatremia; N17.9 Acute kidney failure, unspecified; E87.1 Hypo-osmolality and hyponatremia; R77.8 Other specified abnormalities of plasma proteins; I12.9 Hypertensive chronic kidney disease with stage 1 through stage 4 chronic kidney disease, or unspecified chronic kidney disease; E78.5 Hyperlipidemia, unspecified; E11.40 Type 2 diabetes mellitus with diabetic neuropathy, unspecified; E11.22 Type 2 diabetes mellitus with diabetic chronic kidney disease; M19.90 Unspecified osteoarthritis, unspecified site; E89.0 Postprocedural hypothyroidism; R33.9 Retention of urine, unspecified; Z20.822 Contact with and (suspected) exposure to COVID-19; N18.9 Chronic kidney disease, unspecified; F01.50 Vascular dementia, unspecified severity, without behavioral disturbance, psychotic disturbance, mood disturbance, and anxiety; R62.7 Adult failure to thrive; Z86.73 Personal history of transient ischemic attack (TIA), and cerebral infarction without residual deficits; Z88.5 Allergy status to narcotic agent; Z98.891 History of uterine scar from previous surgery
CPT/HCPCS: 70450; 70551; 71045; 74176; 76770; 80048; 80053; 80061; 81001; 81002; 82140; 82962; 83036; 83735; 84100; 84484; 85025; 92526; 92610; 93005; 93306; 93880; 97162; 97165; 97530; 97535; 99291; G0378; G0480; J0360; J1644; J2405; J3490; J7030; J7060; 36415-L1; 36415-TC

== ENCOUNTER 2022-06-12 08:10 | Emergency (ER) | payer MEDICARE, OTHER ==
[~2022-06-12] VITALS: Ht 157.5 cm; Wt 65.9 kg
[~2022-06-12 08:10] MED LIST changes: -ALPR0.255 PO; -AMLO-257 PO; +AMLO-258 PO; -CARV3.1262 PO; +CARV6 PO; +DOCU-350 PO; -DOCU250C77 PO; -FERR-89 PO; -GABA600T PO; -ISOS30TA92 PO; +LOSA-382 PO; -METF-1211 PO; -POTA-92 PO; -TRAM50TA4 PO
[2022-06-12] MEDS ORDERED: HYDR-4584 PO (08:17)
[2022-06-12] MEDS ORDERED: FURO20 PO (08:17)
[2022-06-12] MEDS ORDERED: SACU1TAB4 PO (08:17)
[2022-06-12] MEDS ORDERED: PredniSONE 20 MG TABLET PO ONE (08:45)
[2022-06-12] MEDS ORDERED: FAMOTIDINE 20 MG TABLET PO ONE (08:45)
[2022-06-12 09:12] LABS: CALCIUM, TOTAL 8.8 mg/dL (8.8-10.5); CREATININE 1.8 mg/dL (0.60-1.30); POTASSIUM 3.8 mmol/L (3.5-5.1)
[2022-06-12 09:15] LABS: BASOPHILS % (AUTO) 0.3 % (0.0-2.0); EOSINOPHILS % (AUTO) 8.6 % (1.0-6.0); HEMATOCRIT 35.6 % (36-46); HEMOGLOBIN 10.8 g/dL (12.0-16.0); LYMPHOCYTES # (AUTO) 1.7 K/uL (1.0-4.8); LYMPHOCYTES % (AUTO) 26.2 % (22.0-44.0); MEAN CORPUSCULAR HEMOGLOBIN 24.7 pg (26.0-34.0); MEAN CORPUSCULAR HGB CONC 30.5 G/dL (31.0-37.0); MEAN CORPUSCULAR VOLUME 81 fL (80-100); MONOCYTES # (AUTO) 0.4 K/uL (0.1-1.0); MONOCYTES % (AUTO) 6.1 % (2.0-9.0); NEUTROPHILS # (AUTO) 3.8 K/uL (1.8-7.7); NEUTROPHILS % (AUTO) 58.8 % (40.0-70.0); PLATELET COUNT (AUTO) 242 K/uL (150-450); RED CELL DISTRIBUTION WIDTH 13.3 % (11.5-14.5)
[2022-06-12] MEDS ORDERED: SODIUM CHLORIDE 0.9% 500 ML IV ONE (09:30)
[2022-06-12] MEDS ORDERED: PRED-554 PO (10:08)
[2022-06-12 10:30] VITALS: BP 123/79
== END 2022-06-12 10:50 | disposition home or self-care (01) ==
LOC: EMS 08:14
DX: L25.8 Unspecified contact dermatitis due to other agents (principal); T45.0X5A Adverse effect of antiallergic and antiemetic drugs, initial encounter; M19.90 Unspecified osteoarthritis, unspecified site; E11.9 Type 2 diabetes mellitus without complications; I10 Essential (primary) hypertension; Z98.890 Other specified postprocedural states; Z88.5 Allergy status to narcotic agent; Y92.89 Other specified places as the place of occurrence of the external cause
CPT/HCPCS: 99283; 80048; 85025; 36415; J7512

== ENCOUNTER 2022-07-14 15:20 | Emergency (ER) | payer MEDICARE, OTHER ==
[~2022-07-14] VITALS: Ht 152.4 cm; Wt 61.4 kg
[~2022-07-14 15:20] MED LIST changes: +FURO20 PO; +HYDR-4584 PO; +PRED-554 PO; +SACU1TAB4 PO
[2022-07-14] MEDS ORDERED: SERT-439 PO (15:28)
[2022-07-14] MEDS ORDERED: OMEP20CA12 PO (15:28)
[2022-07-14] MEDS ORDERED: METF-81 PO (15:28)
[2022-07-14] MEDS ORDERED: CELE-84 PO (15:28)
[2022-07-14] MEDS ORDERED: FURO20TA4 PO (15:28)
[2022-07-14] MEDS ORDERED: CARV25TA32 PO (15:28)
[2022-07-14] MEDS ORDERED: DUPI300P SQ (15:28)
[2022-07-14] MEDS ORDERED: ISOS30TA92 PO (15:28)
[2022-07-14 15:41] LABS: GLUCOSE,POINT OF CARE 108 MG/DL (70-110)
[2022-07-14] MEDS ORDERED: HYDROCODONE/ACETAMINOPHEN 10-325 MG TABLET PO ONE (16:15)
[2022-07-14 17:07] LABS: BASOPHILS % (AUTO) 0.7 % (0.0-2.0); EOSINOPHILS % (AUTO) 11.2 % (1.0-6.0); HEMATOCRIT 34.9 % (36-46); LYMPHOCYTES # (AUTO) 1.3 K/uL (1.0-4.8); MEAN CORPUSCULAR HGB CONC 31.5 G/dL (31.0-37.0); MEAN CORPUSCULAR VOLUME 82 fL (80-100); MONOCYTES # (AUTO) 0.5 K/uL (0.1-1.0); MONOCYTES % (AUTO) 6.8 % (2.0-9.0); NEUTROPHILS # (AUTO) 4.7 K/uL (1.8-7.7); NEUTROPHILS % (AUTO) 63.3 % (40.0-70.0); PLATELET COUNT (AUTO) 308 K/uL (150-450); RED BLOOD CELL COUNT(AUTO) 4.23 MIL/uL (4.00-5.20); RED CELL DISTRIBUTION WIDTH 14.4 % (11.5-14.5)
[2022-07-14 17:13] LABS: APPEARANCE,URINE CLEAR (CLEAR); BILIRUBIN,URINE NEGATIVE (NEGATIVE); GLUCOSE, URINE (UA) NEGATIVE (NEGATIVE); KETONES,URINE NEGATIVE (NEGATIVE); LEUKOCYTE ESTERASE ,URINE NEGATIVE (NEGATIVE); NITRATE,URINE NEGATIVE (NEGATIVE); OCCULT BLOOD,URINE NEGATIVE (NEGATIVE); PROTEIN,URINE NEGATIVE (NEGATIVE); SPECIFIC GRAVITIY, URINE 1.008 (1.003-1.030); UROBILINOGEN,URINE <=1.0 mg/dL (<=1.0)
[2022-07-14 17:15] LABS: CALCIUM, TOTAL 9.1 mg/dL (8.8-10.5); CREATININE 1.69 mg/dL (0.60-1.30); POTASSIUM 3.7 mmol/L (3.5-5.1)
[2022-07-14 17:16] LABS: BACTERIA,URINE None Seen /HPF (None Seen); RBC,URINE None Seen /HPF (0-2); WBC,URINE None Seen /HPF (0-5)
[2022-07-14 17:30] LABS: BILIRUBIN,TOTAL 0.5 mg/dL (0.1-1.0); TOTAL PROTEIN, SERUM 8.2 g/dL (6.4-8.2)
[2022-07-14] MEDS ORDERED: HYDR-4723 PO (20:30)
[2022-07-14 20:45] VITALS: BP 139/66
== END 2022-07-14 20:54 | disposition home or self-care (01) ==
LOC: EMS 15:23
DX: S39.012A Strain of muscle, fascia and tendon of lower back, initial encounter (principal); E11.9 Type 2 diabetes mellitus without complications; I10 Essential (primary) hypertension; M47.9 Spondylosis, unspecified; Z88.5 Allergy status to narcotic agent; X58.XXXA Exposure to other specified factors, initial encounter; Y93.89 Activity, other specified; Y92.89 Other specified places as the place of occurrence of the external cause; Y99.8 Other external cause status
CPT/HCPCS: 72100; 80053; 81001; 82962; 83690; 84484; 85025; 99284